=== PATIENT | female | born 1995 | race Caucasian/White ===

== ENCOUNTER 2016-09-18 18:17 | Emergency (ER) | payer BC ==
[2016-09-18 18:35] VITALS: BP 131/89; PULSE 77; RESP 16; TEMP 98.4; O2SAT 96
[2016-09-18 19:11] LABS: % IMMATURE GRANULYOCYTES 0.1 % (0.0-1.1); ABSOLUTE IMMATURE GRANULOCYTES 0.01 10^3/uL (0.00-0.10); ADD DIFF? NO; ADD MORPH? NO; ADD SCAN? NO; ATYPICAL LYMPHOCYTE FLAG 10 (0-99); FRAGMENT RBC FLAG 0 (0-99); HEMOGLOBIN 14.3 g/dL (12.6-16.3); LEFT SHIFT FLG 0 (0-99); LIPEMIA HEMOLYSIS FLAG 90 (0-99); MEAN CELL HEMOGLOBIN 29.7 pg (27.9-34.1); MEAN CELL HEMOGLOBIN CONCENTR. 34.9 g/dL (32.4-36.7); MEAN CELL VOLUME 85.1 fL (81.5-99.8); MEAN PLATELET VOLUME 7.9 fL (8.7-11.7); PLATELET CLUMPS FLAG 0 (0-99); PLATELET COUNT 273 10^3/uL (150-400); RED BLOOD CELL COUNT 4.82 10^6/uL (4.18-5.33); RED CELL DISTRIBUTION WIDTH 12.5 % (11.5-15.2)
--- NOTE | 2016-09-18 19:23 | UCPHY ---
H & P Time Seen by Provider: 09/18/16 18:36 Patient Type: Established HPI/ROS: 20-year-old female presents complaining of sore throat for several days she is concerned she might have mono as at least 5 of her friends of had mono over the last several weeks. Patient is a student and has finals next week, has not had much rest. Review of systems As per HPI General no fever no chills no weakness HEENT no eye pain no eye discharge. No eye redness, positive sore throat Respiratory no cough, no shortness of breath Cardiac no chest pain, no peripheral edema GI no abdominal pain, no diarrhea, no constipation, no nausea, no vomiting no flank pain, no hematuria, no dysuria Musculoskeletal no myalgias, no joint pain Heme no easy bruising, no easy bleeding Endo no polyuria, no polydipsia Skin no rashes, no pruritus Neuro no syncope, no dizziness, no headaches Psych is no suicidal ideation, no homicidal ideation Past Medical/Surgical History: Asthma Social History: College student Smoking Status: Never smoked Physical Exam: 20-year-old female Alert and oriented in no acute distress nontoxic appearance, afebrile Atraumatic normocephalic Extraocular muscles intact, anicteric Neck-supple, positive anterior cervical lymphadenopathy mildly tender to palpation Oropharynx positive enlarged tonsils, erythematous, no uvular deviation, no purulent exudate, tolerating own secretions, no trismus Lungs clear to auscultation bilaterally Heart regular rate and rhythm Abdomen normoactive bowel sounds soft nontender Extremities no cyanosis clubbing edema Skin no rash Constitutional: Initial Vital Signs Temperature (C) 36.9 C 09/18/16 18:32 Heart Rate 77 09/18/16 18:32 Respiratory Rate 16 09/18/16 18:32 Blood Pressure 131/89 H 09/18/16 18:32 O2 Sat (%) 96 09/18/16 18:32 O2 Delivery Mode Room Air Allergies/Adverse Reactions: No Known Allergies Allergy (Verified 09/18/16 18:31) Home Medications: Medication Instructions Recorded Albuterol 5 mg/ml INH 09/18/16 Control Pill 09/18/16 Medical Decision Making ED Course/Re-evaluation: Patient seen and evaluated for sore throat Differential diagnosis considered URI, pharyngitis, strep pharyngitis, mononucleosis, viral syndrome Rapid strep negative Treutlen negative CBC within normal limits Impression Viral pharyngitis Plan Supportive care Follow up with primary care physician Return as needed - Data Points Laboratory Results: Laboratory Results 09/18/16 19:05 09/18/16 09/18/16 09/18/16 Unknown 19:05 19:05 WBC 7.64 10^3/uL 10^3/uL (3.80-9.50) RBC 4.82 10^6/uL 10^6/uL (4.18-5.33) Hgb 14.3 g/dL g/dL (12.6-16.3) Hct 41.0 % % (38.0-47.0) MCV 85.1 fL fL (81.5-99.8) MCH 29.7 pg pg (27.9-34.1) MCHC 34.9 g/dL g/dL (32.4-36.7) RDW 12.5 % % (11.5-15.2) Plt Count 273 10^3/uL 10^3/uL (150-400) MPV 7.9 fL L fL (8.7-11.7) Neut % (Auto) 53.8 % % (39.3-74.2) Lymph % (Auto) 34.7 % % (15.0-45.0) [place] % (Auto) 7.2 % % (4.5-13.0) Eos % (Auto) 3.8 % % (0.6-7.6) Baso % (Auto) 0.4 % % (0.3-1.7) Nucleat RBC Rel Count 0.0 % % (0.0-0.2) Absolute Neuts (auto) 4.11 10^3/uL 10^3/uL (1.70-6.50) Absolute Lymphs (auto) 2.65 10^3/uL 10^3/uL (1.00-3.00) Absolute Monos (auto) 0.55 10^3/uL 10^3/uL (0.30-0.80) Absolute Eos (auto) 0.29 10^3/uL 10^3/uL (0.03-0.40) Absolute Basos (auto) 0.03 10^3/uL 10^3/uL (0.02-0.10) Absolute Nucleated RBC 0.00 10^3/uL 10^3/uL (0-0.01) Immature Gran % 0.1 % % (0.0-1.1) Immature Gran # 0.01 10^3/uL 10^3/uL (0.00-0.10) Monoscreen NEGATIVE (NEGATIVE) Group A Strep Screen Group A Strep DNA Pending 09/18/16 18:45 WBC RBC Hgb Hct MCV MCH MCHC RDW Plt Count MPV Neut % (Auto) Lymph % (Auto) [place] % (Auto) Eos % (Auto) Baso % (Auto) Nucleat RBC Rel Count Absolute Neuts (auto) Absolute Lymphs (auto) Absolute Monos (auto) Absolute Eos (auto) Absolute Basos (auto) Absolute Nucleated RBC Immature Gran % Immature Gran # Monoscreen Group A Strep Screen NEGATIVE (NEGATIVE) Group A Strep DNA Departure - Departure Disposition: Home, Routine, Self-Care Clinical Impression: Pharyngitis Condition: Good Instructions: Pharyngitis (ED), Viral Syndrome (ED) Referrals: Danielle Tovar PA [Primary Care Provider] - As per Instructions - PQRS PQRS Measurement: na
== END 2016-09-18 19:40 | disposition home or self-care (01) ==
LOC: CED 18:17
DX: J02.9 Acute pharyngitis, unspecified (principal)
CPT/HCPCS: 85025-PO; 86308-PO; 87880-PO; 99214-PO; G0463-PO